=== PATIENT | male | born 1935 | race Caucasian/White ===

== ENCOUNTER 2021-10-26 05:54 | Inpatient (IN) ==
[2021-10-26] MEDS ORDERED: Aspirin 81 MG TAB.CHEW PO ONE (06:23)
[2021-10-26 06:53] LABS: Basophils % 0.4 %; Eosinophils # 0.3 K/mcL (0.0-0.6); Eosinophils % 3.6 %; Hemoglobin 13.3 g/dL (12.9-16.9); Immature Granulocytes % 0.4 % (0-4); Lymphocytes # 1.3 K/mcL (0.6-4.6); Lymphocytes % 17.5 %; Mean Corpuscular HGB Conc 30.9 g/dL (31.6-35.5); Mean Corpuscular Hemoglobin 31.6 pg (28.0-33.3); Mean Corpuscular Volume 102.1 fL (83.0-100.0); Mean Platelet Volume 9.4 fL (9.4-12.4); Monocytes # 0.7 K/mcL (0.0-1.3); Monocytes % 9.6 %; Neutrophils # 4.9 K/mcL (1.6-8.9); Platelet Count 267 K/mcL (140-400); Red Blood Count 4.21 M/mcL (4.19-5.50); Segmented Neutrophils % 68.5 %; White Blood Count 7.2 K/mcL (4.3-11.1)
[2021-10-26 07:01] LABS: INR 1.1; Prothrombin Time 11.8 Seconds (9.4-12.1)
[2021-10-26 07:03] LABS: Activated Partial Thrombo Time 33.2 Seconds (26.0-36.0)
[2021-10-26] MEDS ORDERED: Isovue-370 500 ML BOTTLE IVP ONE (07:20)
[2021-10-26 07:27] LABS: Albumin 3.8 g/dL (3.5-5.7); Albumin/Globulin Ratio 1.4 (1.1-2.2); Bilirubin,Direct 0.2 mg/dL (0.0-0.2); Bilirubin,Indirect 0.4 mg/dL (0.0-1.0); Bilirubin,Total 0.6 mg/dL (0.3-1.0); Globulin 2.8 g/dL (2.4-3.5); Total Protein 6.6 g/dL (6.4-8.9); Troponin I 0.25 ng/mL (< 0.04)
[2021-10-26 09:00] LABS: Influenza A PCR Negative (Negative); Influenza B PCR Negative (Negative); Resp. Syncytial Virus PCR Negative (Negative)
[2021-10-26 09:31] LABS: SARS-CoV-2 by PCR (In House) Negative (Negative)
[2021-10-26] MEDS ORDERED: Acetaminophen 325 MG TABLET PO PRN (11:05)
[2021-10-26] MEDS ORDERED: *HR* HYDROcodone/Acet 5/325 mg TABLET PO PRN (11:05)
[2021-10-26] MEDS ORDERED: Naloxone 0.4 MG/ML INJ IVP PRN (11:05)
[2021-10-26] MEDS ORDERED: Melatonin 3 MG TABLET PO PRN (11:05)
[2021-10-26] MEDS ORDERED: Ondansetron 4 MG/2 ML VIAL IVP PRN (11:05)
[2021-10-26] MEDS ORDERED: *HR* Heparin 5,000 UNIT/ML VIAL IVP ONE (11:07)
[2021-10-26] MEDS ORDERED: *HR* Heparin 5,000 UNIT/ML VIAL IVP PRN (11:07)
[2021-10-26] MEDS ORDERED: Ipratropium/Albuterol Neb 3 ML IH PRN (12:02)
[2021-10-26] MEDS: Heparin 25,000 UNIT/250 ML 25,000 UNIT/250 ML IV.SOLN IVC SCH (12:34)
[2021-10-26] MEDS: Azithromycin 500 MG in 0.9 % Sodium Chloride 250 ML IVPB SCH (12:35)
[2021-10-26 13:50] LABS: Adenovirus Not Detected (Not Detect); Bordetella Pertussis Not Detected (Not Detect); Chlamydophila pneumoniae Not Detected (Not Detect); Coronavirus 229E Not Detected (Not Detect); Coronavirus HKU1 Not Detected (Not Detect); Coronavirus NL63 Not Detected (Not Detect); Coronavirus OC43 Not Detected (Not Detect); Human Metapneumovirus Not Detected (Not Detect); Human Rhinovirus/Enterovirus DETECTED (Not Detect); Influenza A Subtype 2009 H1 Not Detected (Not Detect); Influenza B Not Detected (Not Detect); Mycoplasma pneumoniae Not Detected (Not Detect); Parainfluenza Virus 1 Not Detected (Not Detect); Parainfluenza Virus 2 Not Detected (Not Detect); Parainfluenza Virus 3 Not Detected (Not Detect); Parainfluenza Virus 4 Not Detected (Not Detect); Respiratory Syncytial Virus Not Detected (Not Detect); SARS-CoV-2 Not Detected (Not Detect)
[2021-10-26] MEDS ORDERED: Isosorbide MONOnitrate (24 HR) 30 MG TAB.ER.24H PO SCH (14:45)
[2021-10-26] MEDS: Ipratropium/Albuterol Neb 3 ML IH SCH ×3 (15:48→23:38)
[2021-10-26] MEDS: MethylPREDNISolone 40 MG/ML VIAL IVP SCH (15:49)
[2021-10-26] MEDS ORDERED: Furosemide 20 MG/2 ML VIAL IVP ONE ×2 (16:13→16:30)
[2021-10-26] MEDS: Budesonide/Formoterol 80/4.5 1 PUFF INH IH SCH (19:39)
[2021-10-26] MEDS: *HR* Heparin 5,000 UNIT/ML VIAL IVP PRN (20:43)
[2021-10-27] MEDS: MethylPREDNISolone 40 MG/ML VIAL IVP SCH ×3 (01:45→15:43)
[2021-10-27 02:58] LABS: Basophils % 0.2 %; Hemoglobin 12.6 g/dL (12.9-16.9); Immature Granulocytes % 0.7 % (0-4); Lymphocytes # 0.6 K/mcL (0.6-4.6); Lymphocytes % 10.6 %; Mean Corpuscular HGB Conc 31.5 g/dL (31.6-35.5); Mean Corpuscular Hemoglobin 31.9 pg (28.0-33.3); Mean Corpuscular Volume 101.3 fL (83.0-100.0); Mean Platelet Volume 9.5 fL (9.4-12.4); Monocytes # 0.3 K/mcL (0.0-1.3); Monocytes % 4.6 %; Neutrophils # 4.9 K/mcL (1.6-8.9); Platelet Count 256 K/mcL (140-400); Red Blood Count 3.95 M/mcL (4.19-5.50); Red Cell Distribution Width 12.9 % (11.5-14.5); Segmented Neutrophils % 83.9 %; White Blood Count 5.9 K/mcL (4.3-11.1)
[2021-10-27 03:13] LABS: Heparin anti-factor XA UFH 0.19 IU/mL (0.30-0.70)
[2021-10-27 03:14] LABS: INR 1.1; Prothrombin Time 12.3 Seconds (9.4-12.1)
[2021-10-27] MEDS: *HR* Heparin 5,000 UNIT/ML VIAL IVP PRN ×2 (03:32→18:40)
[2021-10-27] MEDS: Ipratropium/Albuterol Neb 3 ML IH SCH ×2 (04:00→07:27)
[2021-10-27 05:34] LABS: Calcium 8.8 mg/dL (8.6-10.3); Chol/HDL Ratio 2.6 (0-4.9); Magnesium 2.2 mg/dL (1.6-2.6); Potassium 5.5 mEq/L (3.5-5.1)
[2021-10-27] MEDS: Budesonide/Formoterol 80/4.5 1 PUFF INH IH SCH (07:27)
[2021-10-27] MEDS: Metoprolol XL (24 HR) Succ 25 MG TAB.ER.24H PO SCH (09:35)
[2021-10-27] MEDS: lisinopriL 10 MG TABLET PO SCH (09:35)
[2021-10-27] MEDS: Aspirin Enteric Coated 81 MG Tablet PO SCH (09:35)
[2021-10-27] MEDS ORDERED: Perflutren Lipid Microsphere 1.3 ML in 0.9 % Sodium Chloride 8.7 ML IVP PRN (11:36)
[2021-10-27] MEDS ORDERED: Ipratropium/Albuterol Neb 3 ML IH PRN (11:45)
[2021-10-27 14:22] LABS: Thyroid Stimulating Hormone 1.827 mcIU/mL (0.340-5.600)
[2021-10-27] MEDS: Azithromycin 500 MG in 0.9 % Sodium Chloride 250 ML IVPB SCH (14:40)
[2021-10-27] MEDS: Heparin 25,000 UNIT/250 ML 25,000 UNIT/250 ML IV.SOLN IVC SCH (14:40)
[2021-10-28] MEDS: MethylPREDNISolone 40 MG/ML VIAL IVP SCH ×2 (00:25→07:37)
[2021-10-28] MEDS: Metoprolol XL (24 HR) Succ 25 MG TAB.ER.24H PO SCH (07:36)
[2021-10-28] MEDS: Aspirin Enteric Coated 81 MG Tablet PO SCH (07:37)
[2021-10-28] MEDS: lisinopriL 10 MG TABLET PO SCH (07:37)
[2021-10-28] MEDS: *HR* Heparin 5,000 UNIT/ML VIAL IVP PRN (08:44)
[2021-10-28] MEDS: Azithromycin 500 MG in 0.9 % Sodium Chloride 250 ML IVPB SCH (11:56)
[2021-10-28 12:25] LABS: Calcium 8.3 mg/dL (8.6-10.3)
[2021-10-28] MEDS: Isosorbide MONOnitrate (24 HR) 30 MG TAB.ER.24H PO SCH (13:26)
[2021-10-28] MEDS: Heparin 25,000 UNIT/250 ML 25,000 UNIT/250 ML IV.SOLN IVC SCH (14:42)
[2021-10-28] MEDS ORDERED: *HR* Warfarin 2.5 MG TABLET PO ONE (18:00)
[2021-10-28] MEDS ORDERED: Warfarin perPT PO SCH (18:00)
[2021-10-29 05:25] LABS: INR 1.2
[2021-10-29] MEDS: Metoprolol XL (24 HR) Succ 25 MG TAB.ER.24H PO SCH (08:17)
[2021-10-29] MEDS: lisinopriL 10 MG TABLET PO SCH (08:17)
[2021-10-29] MEDS: Isosorbide MONOnitrate (24 HR) 30 MG TAB.ER.24H PO SCH (08:18)
[2021-10-29] MEDS ORDERED: Furosemide 20 MG TABLET PO SCH (09:00)
[2021-10-29] MEDS ORDERED: predniSONE 20 MG TABLET PO SCH (09:00)
[2021-10-29 11:06] LABS: INR 1.1; Prothrombin Time 12.4 Seconds (9.4-12.1)
[2021-10-29 11:31] VITALS: BP 167/70; PULSE 47; TEMP 97.1; O2SAT 93
[2021-10-29] MEDS: Heparin 25,000 UNIT/250 ML 25,000 UNIT/250 ML IV.SOLN IVC SCH (11:46)
[2021-10-30] MEDS ORDERED: Isosorbide MONOnitrate (24 HR) 60 MG TAB.ER.24H PO SCH (09:00)
== END 2021-10-29 13:11 | disposition left against medical advice (07) | DRG 280 ==
LOC: 3BNU 05:54 → EMEROOARM 05:54 → SUATTDRO 11:07 → 3BNU 11:57
PROVIDERS: ADMIT Internal Medicine; ATTEND Registered Nurse